=== PATIENT | male | born 1950 | race Caucasian/White ===

== ENCOUNTER → 2025-06-26 | Outpatient (CLI) | payer MEDICARE, SELFPAY ==
--- NOTE | 2025-06-26 09:30 | RAD_ITS ---
PROCEDURE: ESOPHAGUS DUAL CONTRAST 06/26/2025 REASON FOR EXAM: DYSPHAGIA, PHARYNGOESOPHAGEAL PHASE TECHNIQUE: ESOPHAGUS DUAL CONTRAST FLUOROSCOPIC TIME: A minute and 10 seconds. Radiation dose: 4.78 mGy FLUOROGRAPHIC IMAGES: 36 COMPARISON: None FINDINGS: The patient ingested barium. Multiple images of the esophagus were obtained. There is no evidence of esophageal obstruction. No evidence of mass lesion. No evidence of gastroesophageal reflux. The patient ingested a 12 mm tablet the barium without any difficulty. RAD/Esophagus Dual Contrast IMPRESSION: Unremarkable air-contrast esophagram. Reading Location: [facility]
--- NOTE | 2025-06-26 09:30 | RAD_ITS ---
PROCEDURE: ESOPHAGUS DUAL CONTRAST 06/26/2025 REASON FOR EXAM: DYSPHAGIA, PHARYNGOESOPHAGEAL PHASE TECHNIQUE: ESOPHAGUS DUAL CONTRAST FLUOROSCOPIC TIME: A minute and 10 seconds. Radiation dose: 4.78 mGy FLUOROGRAPHIC IMAGES: 36 COMPARISON: None FINDINGS: The patient ingested barium. Multiple images of the esophagus were obtained. There is no evidence of esophageal obstruction. No evidence of mass lesion. No evidence of gastroesophageal reflux. The patient ingested a 12 mm tablet the barium without any difficulty. RAD/Esophagus Dual Contrast IMPRESSION: Unremarkable air-contrast esophagram. Reading Location: [facility]
== END | disposition home or self-care (01) ==
PROVIDERS: PCP Family Medicine; Referring Provider Otolaryngology Otolaryngology/Facial Plastic Surgery; Visit Provider Otolaryngology Otolaryngology/Facial Plastic Surgery
DX: R13.10 Dysphagia, unspecified (principal)
CPT/HCPCS: 74221